=== PATIENT | male | born 1940 | race Caucasian/White ===

== ENCOUNTER 2018-05-09 09:54 | Emergency (ER) | payer OTHER, MEDICARE ==
[~2018-05-09] VITALS: Ht 172.7 cm; Wt 86.2 kg
[~2018-05-09 09:54] MED LIST: BENA10TA2 PO; CARV6.2554 PO; DIGO250T78 PO; DILT180C69 PO; INSU100V9 SUBCUT; SIMV40TA2 PO; WARF5TAB2 PO
[2018-05-09 10:09] VITALS: BP_SYST 121
[2018-05-09 11:30] LABS: BASOPHILS % (AUTO) 0.5 % (0.0-2.0); EOSINOPHILS # (AUTO) 0.1 K/uL (0.0-0.4); EOSINOPHILS % (AUTO) 1.6 % (0.0-4.0); HEMATOCRIT 37.5 % (36-54); HEMOGLOBIN 12.4 g/dL (14.0-18.0); LYMPHOCYTES # (AUTO) 1.1 K/uL (1.0-5.5); LYMPHOCYTES % (AUTO) 16.4 % (20.5-51.5); MEAN CORPUSCULAR HEMOGLOBIN 29 pg (27-31); MEAN CORPUSCULAR HGB CONC 33 % (32-36); MEAN CORPUSCULAR VOLUME 89 fL (79.0-98.0); MONOCYTES # (AUTO) 0.5 K/uL (0.0-1.0); MONOCYTES % (AUTO) 7.2 % (1.7-9.3); NEUTROPHILS # (AUTO) 4.8 K/uL (1.8-7.7); NEUTROPHILS % (AUTO) 74.3 % (40.0-70.0); PLATELET COUNT (AUTO) 184 K/uL (130-430); RED BLOOD CELL COUNT(AUTO) 4.22 MIL/uL (4.2-6.2); WHITE BLOOD COUNT (AUTO) 6.5 K/uL (4.8-10.8)
[2018-05-09 12:12] LABS: INR 4.3 (0.80-1.20); PROTHROMBIN TIME 44.7 SECS (9.5-12.5)
[2018-05-09 12:44] VITALS: BP_SYST 131
== END 2018-05-09 12:44 | disposition home or self-care (01) ==
LOC: SED 09:54
DX: S70.11XA Contusion of right thigh, initial encounter (principal); E11.9 Type 2 diabetes mellitus without complications; I10 Essential (primary) hypertension; Z86.79 Personal history of other diseases of the circulatory system; Z95.1 Presence of aortocoronary bypass graft; Z79.899 Other long term (current) drug therapy; W01.0XXA Fall on same level from slipping, tripping and stumbling without subsequent striking against object, initial encounter; Y93.89 Activity, other specified; Y92.89 Other specified places as the place of occurrence of the external cause; Y99.8 Other external cause status
CPT/HCPCS: 36415; 72170-TC; 73552; 85025; 85610-TC; 85730-TC; 99285

== ENCOUNTER 2019-08-22 16:58 | Emergency (ER) | payer OTHER, MEDICARE ==
[~2019-08-22] VITALS: Ht 172.7 cm; Wt 88.5 kg
[~2019-08-22 16:58] MED LIST changes: +BENA10TA11 PO; -BENA10TA2 PO; +DILT180C67 PO; -DILT180C69 PO
--- NOTE | 2019-08-22 17:00 | NUR ---
BROUGHT BACK TO BED #7 AND TRIAGED. REPORT GIVEN TO LIDA
[2019-08-22 17:05] VITALS: BP_SYST 149
--- NOTE | 2019-08-22 17:35 | NUR ---
Patient is awake, alert, and oriented x4. Patient is complaining of bump to the back of his neck which is imparing his ability to sleep. Patient is complaining of pain to the bump.
[2019-08-22] MEDS ORDERED: LIDOCAINE/EPI 2% 1:100000 20 ML VIAL INJ ONE (17:45)
--- NOTE | 2019-08-22 18:01 | NUR ---
DR BROWN AT BEDSIDE PERFORMING I AND D. PT TOLERATING IT WELL.
[2019-08-22] MEDS ORDERED: SULFAMETHOXAZOLE/TRIMETHOPR DS 1 TABLET PO ONE (18:30)
[2019-08-22] MEDS ORDERED: CEPHALEXIN 500 MG CAPSULE PO ONE (18:30)
[2019-08-22 18:51] VITALS: BP_SYST 132
--- NOTE | 2019-08-22 18:51 | NUR ---
Patient given written and verbal discharge instructions and verbalizes understanding. ER MD Lopes discussed with patient the results and treatment provided. Patient in stable condition. ID arm band removed. .Rx of Bactrim, Keflex, [employer] given. Patient educated on pain management and to follow up with PMD. Pain Scale 0. Opportunity for questions provided and answered. Medication side effect fact sheet provided.
== END 2019-08-22 18:51 | disposition home or self-care (01) ==
LOC: SED 16:58
DX: L02.811 Cutaneous abscess of head [any part, except face] (principal); E11.9 Type 2 diabetes mellitus without complications; I10 Essential (primary) hypertension; Z79.899 Other long term (current) drug therapy; Z79.4 Long term (current) use of insulin
CPT/HCPCS: 99283

== ENCOUNTER 2019-08-25 09:58 | Emergency (ER) | payer OTHER, MEDICARE ==
[~2019-08-25] VITALS: Ht 170.2 cm; Wt 74.8 kg
[2019-08-25 10:06] VITALS: BP_SYST 108
[2019-08-25 10:45] VITALS: BP_SYST 108
== END 2019-08-25 10:45 | disposition home or self-care (01) ==
LOC: SED 09:58
DX: L02.11 Cutaneous abscess of neck (principal); I10 Essential (primary) hypertension; E11.9 Type 2 diabetes mellitus without complications; Z48.00 Encounter for change or removal of nonsurgical wound dressing; Z79.899 Other long term (current) drug therapy; Z79.4 Long term (current) use of insulin
CPT/HCPCS: 99283

== ENCOUNTER 2019-08-27 09:12 | Emergency (ER) | payer OTHER, MEDICARE ==
[~2019-08-27] VITALS: Ht 175.3 cm; Wt 88.5 kg
[2019-08-27 09:15] VITALS: BP_SYST 111
[2019-08-27 09:40] VITALS: BP_SYST 111
[2019-08-27] MEDS ORDERED: BACITRACIN 1 GM OINT TP ONE (09:41)
== END 2019-08-27 09:38 | disposition home or self-care (01) ==
LOC: SED 09:12
DX: Z48.01 Encounter for change or removal of surgical wound dressing (principal); E11.9 Type 2 diabetes mellitus without complications; I10 Essential (primary) hypertension; Z79.4 Long term (current) use of insulin; Z79.899 Other long term (current) drug therapy
CPT/HCPCS: 99283

== ENCOUNTER 2024-05-23 17:45 | Inpatient (IN) | payer MEDICARE, OTHER ==
[~2024-05-23] VITALS: Ht 175.3 cm; Wt 83.5 kg
[~2024-05-23 17:45] MED LIST changes: -BENA10TA11 PO; +BENA10TA73 PO; +DIGO250T PO; -DIGO250T78 PO; +SIMV-345 PO; -SIMV40TA2 PO
[2024-05-23 17:58] VITALS: BP_SYST 129; PULSE 88; RESP 18; TEMP 97.8; O2SAT 97
[2024-05-23] MEDS ORDERED: DEXTROSE 50% JECT 50 ML DISP.SYRIN ONE (18:09)
[2024-05-23] MEDS: DEXTROSE 50% JECT 50 ML DISP.SYRIN IVP ONE (18:20)
[2024-05-23 18:39] LABS: RED CELL DISTRIBUTION WIDTH 17.1 % (9.0-15.0)
[2024-05-23 18:55] LABS: HEMATOCRIT 46.3 % (36-54); HEMOGLOBIN 16.2 g/dL (14.0-18.0); MEAN CORPUSCULAR HEMOGLOBIN 32 pg (27-31); MEAN CORPUSCULAR HGB CONC 35 % (32-36); MEAN CORPUSCULAR VOLUME 91 fL (79.0-98.0); PLATELET COUNT (AUTO) 284 K/uL (130-430); RED BLOOD CELL COUNT(AUTO) 5.08 MIL/uL (4.2-6.2); WHITE BLOOD COUNT (AUTO) 14.3 K/uL (4.8-10.8)
[2024-05-23 19:01] LABS: ANION GAP 11 (5-15); CALCIUM 8.8 mg/dL (8.4-11.0); CARBON DIOXIDE 24 mmol/L (23-29); CHLORIDE 105 mmol/L (98-107); CREATININE 1.63 mg/dL (0.55-1.30); POTASSIUM 3.8 mmol/L (3.5-5.1); SODIUM SERUM 140 mmol/L (136-145); UREA NITROGEN, BLOOD 28 mg/dL (8-21)
[2024-05-23 19:09] LABS: ALCOHOL, BLOOD < 3 mg/dL (<10)
[2024-05-23 19:10] LABS: GLUCOSE 28 mg/dL (74-106)
[2024-05-23 19:45] LABS: INFLUENZA TYPE A NEGATIVE (NEGATIVE); INFLUENZA TYPE B NEGATIVE (NEGATIVE)
[2024-05-23] MEDS: FUROSEMIDE 20 MG/2 ML VIAL IVP ONE (19:59)
[2024-05-23 20:00] LABS: INR 3.7 (0.80-1.20); PROTHROMBIN TIME 35.8 SECS (9.5-12.5)
[2024-05-23] MEDS: NITROGLYCERIN 1 INCH (GM) OINT. TP ONE (20:00)
[2024-05-23] MEDS: ASPIRIN 81 MG TAB.CHEW PO ONE (20:00)
[2024-05-23 20:12] LABS: BAND % (MANUAL) 6 % (0-6); BASOPHILS % (MANUAL) 0 % (0-2); EOSINOPHILS % (MANUAL) 1 % (0-7); LYMPHOCYTES % (MANUAL) 6 % (20-46); MONOCYTES % (MANUAL) 5 % (0-11)
[2024-05-23 20:13] LABS: ANISOCYTOSIS 1+; OVALOCYTES FEW; PLATELET ESTIMATE ADEQUATE (ADEQUATE)
[2024-05-23] MEDS: PIPERACILLIN/TAZO 3.375 GM in D5W 50 ML IV SCH (20:15)
[2024-05-23] MEDS ORDERED: METO5TAB7 PO (20:21)
[2024-05-23] MEDS ORDERED: FURO40TA5 PO (20:21)
[2024-05-23] MEDS ORDERED: DILT-33 PO (20:21)
[2024-05-23] MEDS ORDERED: POTA-197 PO (20:21)
[2024-05-23] MEDS ORDERED: LEVEMIR (20:21)
[2024-05-23] MEDS ORDERED: ATOR40TA68 PO (20:21)
[2024-05-23] MEDS ORDERED: PIPERACILLIN/TAZOBACTAM 3.375 GM/VIAL (ZOSYN) IV ONE (20:26)
[2024-05-23] MEDS: PIPERACILLIN/TAZO 3.375 GM in D5W 50 ML IV ONE (20:32)
[2024-05-23 20:56] LABS: BILIRUBIN,URINE NEGATIVE (NEGATIVE); BLOOD, URINE 3+ (NEGATIVE); CLARITY/URINE CLEAR (CLEAR); COLOR,URINE YELLOW (YELLOW); GLUCOSE,URINE 1+ (NEGATIVE); KETONES,URINE NEGATIVE (NEGATIVE); LEUKOCYTE ESTERASE ,URINE NEGATIVE (NEGATIVE); NITRITE, URINE NEGATIVE (NEGATIVE); PROTEIN URINE TRACE (NEGATIVE); UROBILINOGEN,URINE 0.2 (0.2-1.0)
[2024-05-23 21:16] LABS: BARBITURATE, URINE NEGATIVE (NEG <=200); BENZODIAZEPINE, URINE NEGATIVE (NEG <=150); METHAMPHETAMINES SCREEN,URINE NEGATIVE (NEG <=500); URINE AMPHETAMINE NEGATIVE (NEG <=500); URINE METHADONE NEGATIVE (NEG <=200)
[2024-05-23 21:17] LABS: CANNABINOID, URINE NEGATIVE (NEG <=50); COCAINE, URINE NEGATIVE (NEG <=150); OPIATE, URINE NEGATIVE (NEG <=100); PHENCYCLIDINE SCREEN,URINE NEGATIVE (NEG <=25); UR TRICYCLIC ANTIDEPRESSANTS NEGATIVE (NEG <=300); URINE OXYCODONE SCREEN NEGATIVE (NEG <=100)
[2024-05-23 21:23] LABS: RBC,URINE >100 /HPF (0-3)
[2024-05-23 21:24] LABS: BACTERIA,URINE FEW /HPF (None Seen)
[2024-05-23 23:25] LABS: INFLUENZA TYPE A Negative (NEGATIVE); INFLUENZA TYPE B NEGATIVE (NEGATIVE)
[2024-05-24] VITALS (25 sets, daily range): BP systolic 96–134; PULSE 54–120; RESP 16–26; TEMP 98.1–98.7; O2SAT 94–99
[2024-05-24] MEDS ORDERED: DEXTROSE 50% JECT 50 ML DISP.SYRIN IVP PRN (01:30)
[2024-05-24] MEDS ORDERED: D5W 1,000 ML IV PRN (01:30)
[2024-05-24] MEDS ORDERED: GLUCOSE (DEXTROSE) ORAL GEL -Adults PO PRN (01:30)
[2024-05-24] MEDS ORDERED: INSULIN REGULAR, HUMAN 100 UNITS/ML, 3 ML VIAL (humuLIN R) SUBCUT PRN (01:30)
[2024-05-24] MEDS: D5/0.45 NS 1,000 ML IV SCH (02:22)
[2024-05-24] MEDS: PIPERACILLIN/TAZOBACTAM 3.375 GM/VIAL (ZOSYN) IV ONE (05:11)
[2024-05-24 06:26] LABS: BASOPHILS % (AUTO) 0.5 % (0.0-2.0); EOSINOPHILS # (AUTO) 0.1 K/uL (0.0-0.4); EOSINOPHILS % (AUTO) 1.4 % (0.0-4.0); HEMATOCRIT 43.1 % (36-54); HEMOGLOBIN 14.3 g/dL (14.0-18.0); MEAN CORPUSCULAR HEMOGLOBIN 30 pg (27-31); MEAN CORPUSCULAR HGB CONC 33 % (32-36); MEAN CORPUSCULAR VOLUME 91 fL (79.0-98.0); MONOCYTES # (AUTO) 0.6 K/uL (0.0-1.0); MONOCYTES % (AUTO) 7.7 % (1.7-9.3); NEUTROPHILS # (AUTO) 5.7 K/uL (1.8-7.7); NEUTROPHILS % (AUTO) 77.4 % (40.0-70.0); PLATELET COUNT (AUTO) 176 K/uL (130-430); RED BLOOD CELL COUNT(AUTO) 4.72 MIL/uL (4.2-6.2); RED CELL DISTRIBUTION WIDTH 16.4 % (9.0-15.0); WHITE BLOOD COUNT (AUTO) 7.4 K/uL (4.8-10.8)
[2024-05-24 07:16] LABS: ANION GAP 12 (5-15); CALCIUM 8.4 mg/dL (8.4-11.0); CARBON DIOXIDE 22 mmol/L (23-29); CHLORIDE 106 mmol/L (98-107); CREATININE 1.55 mg/dL (0.55-1.30); GLUCOSE 107 mg/dL (74-106); POTASSIUM 4.3 mmol/L (3.5-5.1); SODIUM SERUM 140 mmol/L (136-145); UREA NITROGEN, BLOOD 26 mg/dL (8-21)
[2024-05-24] MEDS ORDERED: IPRATROPIUM BROM 0.5 MG/2.5 ML VIAL.NEB (ATROVENT) INH PRN (08:00)
[2024-05-24] MEDS ORDERED: ONDANSETRON HCL 4 MG/2 ML VIAL IVP PRN (08:00)
[2024-05-24] MEDS ORDERED: HYDROcodone/ACETAMIN 5-325 MG TAB (NORCO/ VICODIN) PO PRN (08:00)
[2024-05-24] MEDS ORDERED: ALBUTEROL SULFATE 0.083% 2.5 MG/3 ML VIAL.NEB INH PRN (08:00)
[2024-05-24] MEDS ORDERED: HYDROcodone/ACETAMIN 10-325 MG TAB PO PRN (08:00)
[2024-05-24] MEDS ORDERED: NALOXONE HCL 0.4 MG/ML AMP (NARCAN) IVP PRN ×2 (08:00)
[2024-05-24] MEDS ORDERED: ACETAMINOPHEN 325 MG TABLET PO PRN ×2 (08:00→08:30)
[2024-05-24] MEDS ORDERED: LORazepam 2 MG/ML VIAL IVP PRN (08:00)
[2024-05-24] MEDS ORDERED: DILTIAZEM HCL 180 MG CAP.SR.24H PO SCH (09:00)
[2024-05-24] MEDS: POTASSIUM CHLORIDE 20 MEQ TABLET.ER PO SCH (09:15)
[2024-05-24] MEDS: CARVEDILOL 6.25 MG TABLET (COREG) PO SCH (09:16)
[2024-05-24] MEDS: DILTIAZEM HCL 180 MG CAP.SR.24H PO SCH (09:17)
[2024-05-24] MEDS: DIGOXIN 0.25 MG TABLET PO SCH (09:17)
[2024-05-24] MEDS: metOLazone 5 MG TABLET PO SCH (09:18)
[2024-05-24] MEDS: FUROSEMIDE 40 MG TABLET PO SCH (09:24)
[2024-05-24] MEDS: ATORVASTATIN 20 MG TABLET PO SCH (09:24)
[2024-05-24] MEDS: PIPERACILLIN/TAZO 3.375/DEX-IS 50 ML IV SCH (11:35)
[2024-05-24] MEDS: NORMAL SALINE 5 ML DISP.SYRIN IVF SCH (13:49)
[2024-05-24] MEDS: INSULIN GLARGINE 100 UNITS/ML, 10 ML VIAL SUBCUT SCH (20:54)
[2024-05-24] MEDS ORDERED: BENAZEPRIL HCL Non-Formulary 10 MG TABLET PO SCH (21:00)
[2024-05-24] MEDS: LISINOPRIL 10 MG TABLET (PRINIVIL) PO SCH (21:00)
[2024-05-24] MEDS ORDERED: SIMVASTATIN 40 MG TABLET PO SCH (21:00)
[2024-05-25] VITALS (20 sets, daily range): BP systolic 106–137; PULSE 50–122; RESP 10–25; TEMP 97–98.2; O2SAT 94–100
[2024-05-25 05:32] LABS: BASOPHILS # (AUTO) 0.1 K/uL (0.0-0.2); BASOPHILS % (AUTO) 0.8 % (0.0-2.0); EOSINOPHILS # (AUTO) 0.2 K/uL (0.0-0.4); EOSINOPHILS % (AUTO) 2.6 % (0.0-4.0); HEMATOCRIT 41.2 % (36-54); HEMOGLOBIN 13.7 g/dL (14.0-18.0); LYMPHOCYTES # (AUTO) 1.4 K/uL (1.0-5.5); LYMPHOCYTES % (AUTO) 18.5 % (20.5-51.5); MEAN CORPUSCULAR HEMOGLOBIN 30 pg (27-31); MEAN CORPUSCULAR HGB CONC 33 % (32-36); MEAN CORPUSCULAR VOLUME 91 fL (79.0-98.0); MONOCYTES # (AUTO) 0.8 K/uL (0.0-1.0); MONOCYTES % (AUTO) 10.4 % (1.7-9.3); NEUTROPHILS # (AUTO) 5.2 K/uL (1.8-7.7); NEUTROPHILS % (AUTO) 67.7 % (40.0-70.0); PLATELET COUNT (AUTO) 168 K/uL (130-430); RED BLOOD CELL COUNT(AUTO) 4.52 MIL/uL (4.2-6.2); RED CELL DISTRIBUTION WIDTH 16.8 % (9.0-15.0); WHITE BLOOD COUNT (AUTO) 7.7 K/uL (4.8-10.8)
[2024-05-25 06:21] LABS: PROTHROMBIN TIME 38.5 SECS (9.5-12.5)
[2024-05-25 06:30] LABS: ALANINE AMINOTRANSFERASE 23 U/L (12-78); ALBUMIN 2.8 g/dL (3.4-4.8); ANION GAP 9 (5-15); ASPARTATE AMINOTRANSFERASE 33 U/L (10-37); CALCIUM 8.2 mg/dL (8.4-11.0); CARBON DIOXIDE 28 mmol/L (23-29); CHLORIDE 104 mmol/L (98-107); CREATININE 2.13 mg/dL (0.55-1.30); GLUCOSE 107 mg/dL (74-106); PHOSPHORUS 4.1 mg/dL (2.7-4.5); POTASSIUM 4.2 mmol/L (3.5-5.1); SODIUM SERUM 141 mmol/L (136-145); TOTAL BILIRUBIN 1.3 mg/dL (0.0-1.0); TOTAL PROTEIN, SERUM 6.5 g/dL (6.4-8.3); UREA NITROGEN, BLOOD 31 mg/dL (8-21)
[2024-05-25] MEDS: FUROSEMIDE 40 MG TABLET PO SCH (08:51)
[2024-05-25] MEDS: cefTRIAXone 1 GM in D5W 50 ML IV SCH (13:24)
[2024-05-25] MEDS: ATORVASTATIN 20 MG TABLET PO SCH (21:18)
[2024-05-26] VITALS (7 sets, daily range): BP systolic 99–153; PULSE 58–84; RESP 14–20; TEMP 97.4–98.9; O2SAT 93–98
[2024-05-26] MEDS: INSULIN REGULAR, HUMAN 100 UNITS/ML, 3 ML VIAL (humuLIN R) SUBCUT PRN (06:35)
[2024-05-26 08:43] LABS: ANION GAP 7 (5-15); CALCIUM 8.2 mg/dL (8.4-11.0); CARBON DIOXIDE 30 mmol/L (23-29); CHLORIDE 100 mmol/L (98-107); CREATININE 1.86 mg/dL (0.55-1.30); GLUCOSE 76 mg/dL (74-106); PHOSPHORUS 3.3 mg/dL (2.7-4.5); POTASSIUM 3.5 mmol/L (3.5-5.1); SODIUM SERUM 137 mmol/L (136-145); UREA NITROGEN, BLOOD 31 mg/dL (8-21)
[2024-05-26 08:47] LABS: INR 2.6 (0.80-1.20); PROTHROMBIN TIME 25.5 SECS (9.5-12.5)
[2024-05-26 09:02] LABS: EOSINOPHILS # (AUTO) 0.1 K/uL (0.0-0.4); EOSINOPHILS % (AUTO) 1.4 % (0.0-4.0); HEMOGLOBIN 13.5 g/dL (14.0-18.0); RED CELL DISTRIBUTION WIDTH 16.4 % (9.0-15.0)
[2024-05-26 09:05] LABS: BASOPHILS % (AUTO) 0.4 % (0.0-2.0); HEMATOCRIT 40.3 % (36-54); LYMPHOCYTES % (AUTO) 12.5 % (20.5-51.5); MEAN CORPUSCULAR HEMOGLOBIN 31 pg (27-31); MEAN CORPUSCULAR HGB CONC 34 % (32-36); MEAN CORPUSCULAR VOLUME 91 fL (79.0-98.0); MONOCYTES # (AUTO) 0.9 K/uL (0.0-1.0); MONOCYTES % (AUTO) 10.7 % (1.7-9.3); PLATELET COUNT (AUTO) 167 K/uL (130-430); RED BLOOD CELL COUNT(AUTO) 4.41 MIL/uL (4.2-6.2)
[2024-05-26 09:30] LABS: ERYTHROCYTE SEDIMENTATION RATE 37 MM/HR (0-15)
[2024-05-26] MEDS: WARFARIN SODIUM 5 MG TABLET PO SCH (18:05)
[2024-05-27 00:20] VITALS: RESP 20; TEMP 97.2; O2SAT 94
[2024-05-27 07:00] VITALS: PULSE 78; O2SAT 95
[2024-05-27 07:40] VITALS: BP_SYST 110; PULSE 54; RESP 16; TEMP 97.6; O2SAT 97
[2024-05-27 07:58] LABS: BASOPHILS % (AUTO) 0.4 % (0.0-2.0); EOSINOPHILS # (AUTO) 0.2 K/uL (0.0-0.4); EOSINOPHILS % (AUTO) 2.2 % (0.0-4.0); HEMATOCRIT 42.4 % (36-54); HEMOGLOBIN 13.9 g/dL (14.0-18.0); LYMPHOCYTES # (AUTO) 1.1 K/uL (1.0-5.5); LYMPHOCYTES % (AUTO) 14.5 % (20.5-51.5); MEAN CORPUSCULAR HEMOGLOBIN 30 pg (27-31); MEAN CORPUSCULAR HGB CONC 33 % (32-36); MEAN CORPUSCULAR VOLUME 91 fL (79.0-98.0); MONOCYTES # (AUTO) 0.9 K/uL (0.0-1.0); MONOCYTES % (AUTO) 11.8 % (1.7-9.3); NEUTROPHILS # (AUTO) 5.4 K/uL (1.8-7.7); NEUTROPHILS % (AUTO) 71.1 % (40.0-70.0); PLATELET COUNT (AUTO) 177 K/uL (130-430); RED BLOOD CELL COUNT(AUTO) 4.65 MIL/uL (4.2-6.2); RED CELL DISTRIBUTION WIDTH 16.6 % (9.0-15.0); WHITE BLOOD COUNT (AUTO) 7.6 K/uL (4.8-10.8)
[2024-05-27 07:59] LABS: INR 1.9 (0.80-1.20)
[2024-05-27 08:03] LABS: ANION GAP 8 (5-15); CALCIUM 8.4 mg/dL (8.4-11.0); CARBON DIOXIDE 30 mmol/L (23-29); CHLORIDE 98 mmol/L (98-107); CREATININE 1.56 mg/dL (0.55-1.30); GLUCOSE 81 mg/dL (74-106); PHOSPHORUS 3.2 mg/dL (2.7-4.5); POTASSIUM 3.3 mmol/L (3.5-5.1); SODIUM SERUM 136 mmol/L (136-145); UREA NITROGEN, BLOOD 27 mg/dL (8-21)
[2024-05-27 08:17] LABS: ERYTHROCYTE SEDIMENTATION RATE 41 MM/HR (0-15)
[2024-05-27] MEDS ORDERED: AUG875 PO (10:35)
[2024-05-27 11:07] VITALS: BP_SYST 115; PULSE 74; RESP 16; TEMP 97.4; O2SAT 95
[2024-05-27] MEDS: POTASSIUM CHLORIDE 20 MEQ TABLET.ER PO ONE (11:43)
[2024-05-27 15:49] VITALS: BP_SYST 116; PULSE 81; RESP 16; TEMP 97.6; O2SAT 97
[2024-05-27 20:00] VITALS: BP_SYST 131; PULSE 75; RESP 20; TEMP 97; O2SAT 97; O2SAT 98
[2024-05-28 01:30] VITALS: RESP 20; TEMP 97
[2024-05-28 06:57] LABS: INR 1.8 (0.80-1.20)
[2024-05-28 07:17] LABS: BASOPHILS % (AUTO) 0.3 % (0.0-2.0); EOSINOPHILS # (AUTO) 0.3 K/uL (0.0-0.4); EOSINOPHILS % (AUTO) 4.1 % (0.0-4.0); HEMATOCRIT 42.3 % (36-54); LYMPHOCYTES # (AUTO) 1.2 K/uL (1.0-5.5); LYMPHOCYTES % (AUTO) 15.4 % (20.5-51.5); MEAN CORPUSCULAR HEMOGLOBIN 30 pg (27-31); MEAN CORPUSCULAR HGB CONC 33 % (32-36); MEAN CORPUSCULAR VOLUME 91 fL (79.0-98.0); MONOCYTES % (AUTO) 12.3 % (1.7-9.3); NEUTROPHILS # (AUTO) 5.5 K/uL (1.8-7.7); NEUTROPHILS % (AUTO) 67.9 % (40.0-70.0); PLATELET COUNT (AUTO) 195 K/uL (130-430); RED BLOOD CELL COUNT(AUTO) 4.65 MIL/uL (4.2-6.2); RED CELL DISTRIBUTION WIDTH 16.2 % (9.0-15.0); WHITE BLOOD COUNT (AUTO) 8.1 K/uL (4.8-10.8)
[2024-05-28 07:24] LABS: ALANINE AMINOTRANSFERASE 16 U/L (12-78); ALBUMIN 2.5 g/dL (3.4-4.8); ANION GAP 7 (5-15); ASPARTATE AMINOTRANSFERASE 28 U/L (10-37); CALCIUM 8.5 mg/dL (8.4-11.0); CARBON DIOXIDE 33 mmol/L (23-29); CHLORIDE 97 mmol/L (98-107); CREATININE 1.61 mg/dL (0.55-1.30); GLUCOSE 85 mg/dL (74-106); PHOSPHORUS 3.3 mg/dL (2.7-4.5); POTASSIUM 3.8 mmol/L (3.5-5.1); SODIUM SERUM 137 mmol/L (136-145); TOTAL BILIRUBIN 1.5 mg/dL (0.0-1.0); TOTAL PROTEIN, SERUM 6.8 g/dL (6.4-8.3); UREA NITROGEN, BLOOD 27 mg/dL (8-21)
[2024-05-28 07:46] LABS: ERYTHROCYTE SEDIMENTATION RATE 43 MM/HR (0-15)
[2024-05-28 08:31] VITALS: BP_SYST 129; PULSE 80; RESP 16; TEMP 97.2; O2SAT 97
[2024-05-28 09:30] VITALS: O2SAT 97
[2024-05-28 11:09] VITALS: BP_SYST 136; PULSE 82; RESP 15; TEMP 97.6; O2SAT 93
[2024-05-28 12:35] VITALS: BP_SYST 105; PULSE 68; RESP 16; TEMP 98.5; O2SAT 92
== END 2024-05-28 13:00 | DRG 871 ==
LOC: SED 17:45 → SIC 20:25 → STU 05-25 15:25 → SMU 05-27 09:42
PROVIDERS: ADMIT Preventive Medicine Preventive Medicine/Occupational Environmental Medicine; ATTEND Preventive Medicine Preventive Medicine/Occupational Environmental Medicine
DX: A41.9 Sepsis, unspecified organism (principal); I21.4 Non-ST elevation (NSTEMI) myocardial infarction; J18.9 Pneumonia, unspecified organism; E87.20 Acidosis, unspecified; I50.22 Chronic systolic (congestive) heart failure; I24.89 Other forms of acute ischemic heart disease; J44.0 Chronic obstructive pulmonary disease with (acute) lower respiratory infection; N17.9 Acute kidney failure, unspecified; I13.0 Hypertensive heart and chronic kidney disease with heart failure and stage 1 through stage 4 chronic kidney disease, or unspecified chronic kidney disease; Z20.822 Contact with and (suspected) exposure to COVID-19; D64.9 Anemia, unspecified; E78.5 Hyperlipidemia, unspecified; E87.6 Hypokalemia; E88.09 Other disorders of plasma-protein metabolism, not elsewhere classified; I48.91 Unspecified atrial fibrillation; I25.5 Ischemic cardiomyopathy; E86.0 Dehydration; E11.22 Type 2 diabetes mellitus with diabetic chronic kidney disease; N18.32 Chronic kidney disease, stage 3b; I25.10 Atherosclerotic heart disease of native coronary artery without angina pectoris; Z79.01 Long term (current) use of anticoagulants; Z95.1 Presence of aortocoronary bypass graft; Z90.49 Acquired absence of other specified parts of digestive tract; Z87.891 Personal history of nicotine dependence; Z87.01 Personal history of pneumonia (recurrent); Z86.73 Personal history of transient ischemic attack (TIA), and cerebral infarction without residual deficits; Z79.899 Other long term (current) drug therapy; Z79.4 Long term (current) use of insulin
CPT/HCPCS: 36415; 70450-TC; 71045; 72125-TC; 72170-TC; 76770; 80048; 80053; 80162; 80307; 81000; 81001; 81015; 82948; 83605; 83735; 83880; 84100; 84484; 85007; 85025; 85027; 85610; 85651; 85730; 87040; 87081; 93005; 93306; 94070; 96365; 97110-GP; 97530-GP; 99285; G0378; G0482; J0696; J1815; J1940; J2543; J7060